=== PATIENT | male | born 1995 | race Hispanic/Latino ===

== ENCOUNTER 2021-10-13 17:07 | Emergency (ER) | payer BC ==
[2021-10-13] MEDS ORDERED: SODIUM CHLORIDE 0.9% 1000 ML 1,000 ML IV ONE (21:16)
[2021-10-13] MEDS ORDERED: ONDANSETRON 4 MG/2 ML INJ IV ONE (21:16)
[2021-10-13 21:35] VITALS: BP 160/85
[2021-10-13 21:39] LABS: Basophils # (Auto) 0.1 K/mm3 (0.0-0.1); Basophils % (Auto) 0.4 % (0.0-1.8); Eosinophils % (Auto) 0.1 % (0.0-4.3); Hematocrit 43.9 % (35.5-45.6); Hemoglobin 14.6 gm/dl (11.8-15.2); Lymphocytes # (Auto) 1.8 K/mm3 (1.2-5.4); Lymphocytes % (Auto) 14.2 % (13.4-35.0); Mean Corpuscular HGB Conc 33 % (32-34); Mean Corpuscular Volume 91 fl (84-94); Monocytes # (Auto) 1.4 K/mm3 (0.0-0.8); Monocytes % (Auto) 10.5 % (0.0-7.3); Platelet Count 192 K/mm3 (140-440); Red Blood Count 4.84 M/mm3 (3.65-5.03)
[2021-10-13 21:55] LABS: Alanine Aminotransferase 14 units/L (7-56); BUN/Creatinine Ratio 9; Blood Urea Nitrogen 7 mg/dL (9-20); Calcium 9.7 mg/dL (8.4-10.2); Hemolysis Index 12
--- NOTE | 2021-10-13 21:59 | Emergency Department Report ---
ED General Adult HPI - General Chief complaint: Weakness Stated complaint: DIZZINESS/WEAKNESS/STOMACH ISSUE Time Seen by Provider: 10/13/21 21:14 Source: patient, EMS Mode of arrival: Stretcher Limitations: No Limitations - History of Present Illness Initial comments: Patient 26-year-old male with history of GERD, hiatal hernia, and cochlear implant who presents for weakness, dizziness, abdominal queasiness with nausea vomiting since this AM. Patient does endorse drinking EtOH on last night and having dinner. Noticed symptoms this a.m. upon awakening with dizziness, abd cramping, and weakness.. Abdominal pain is described as cramping and spasms 4/10. And generalized malaise. There is no fevers no chills, no shortness of breath. Patient is COVID vaccinated. Patient states symptoms are improving. Patient is currently tolerating p.o. intake without nausea vomiting. Nausea is rated at 4/10. - Related Data Previous Rx's Medication Instructions Recorded Last Taken Type Ondansetron [Zofran Odt] 4 mg PO Q8HR PRN #9 tab.rapdis 10/13/21 Unknown Rx Allergies Allergy/AdvReac Type Severity Reaction Status Date / Time No Known Allergies Allergy Verified 10/13/21 17:22 ED Review of Systems ROS: Stated complaint: DIZZINESS/WEAKNESS/STOMACH ISSUE Other details as noted in HPI Constitutional: malaise. denies: chills, fever Eyes: denies: eye pain, eye discharge, vision change ENT: denies: ear pain, throat pain, congestion Respiratory: denies: cough, shortness of breath, wheezing Cardiovascular: denies: chest pain, palpitations Endocrine: no symptoms reported Gastrointestinal: abdominal pain, nausea, vomiting. denies: diarrhea, cons tipation, hematemesis, melena, hematochezia Genitourinary: denies: urgency, dysuria, frequency, hematuria Musculoskeletal: denies: back pain, joint swelling, arthralgia Skin: denies: rash, lesions Neurological: weakness, vertigo. denies: headache, numbness, paresthesias, confusion Psychiatric: anxiety. denies: depression Hematological/Lymphatic: denies: easy bleeding, easy bruising ED Past Medical Hx - Past Medical History Previous Medical History?: Yes Hx GERD: Yes Additional medical history: Hiatal hernia. Rt cochlear device - Social History Smoking Status: Never Smoker Substance Use Type: Alcohol - Medications Home Medications: Home Medications Medication Instructions Recorded Confirmed Last Taken Type Ondansetron [Zofran Odt] 4 mg PO Q8HR PRN #9 tab.rapdis 10/13/21 Unknown Rx ED Physical Exam - General Limitations: No Limitations General appearance: alert, in no apparent distress - Head Head exam: Present: normocephalic, normal inspection - Eye Eye exam: Present: PERRL, EOMI. Absent: conjunctival injection, nystagmus Pupils: Present: normal accommodation - ENT ENT exam: Present: normal orophraynx, mucous membranes moist, normal external ear exam - Neck Neck exam: Present: normal inspection, full ROM. Absent: tenderness, lymphadenopathy - Respiratory Respiratory exam: Present: normal lung sounds bilaterally. Absent: respiratory distress, wheezes, stridor, chest wall tenderness - Cardiovascular Cardiovascular Exam: Present: regular rate, normal rhythm, normal heart sounds - GI/Abdominal GI/Abdominal exam: Present: soft, normal bowel sounds. Absent: distended, tenderness, guarding, rebound, rigid, bruit, hernia - Rectal Rectal exam: Present: deferred - Extremities Exam Extremities exam: Present: normal inspection, full ROM, normal capillary refill. Absent: tenderness - Back Exam Back exam: Present: normal inspection, full ROM. Absent: CVA tenderness (R), CVA tenderness (L) - Neurological Exam Neurological exam: Present: alert, oriented X3, CN II-XII intact, normal gait, reflexes normal. Absent: motor sensory deficit - Expanded Neurological Exam Expanded Patient oriented to: Present: person, place, time Speech: Present: fluid speech Cranial nerves: EOM's Intact: Normal, Gag Reflex: Normal, Tongue Deviation: Normal, Nystagmus: Normal, Facial Sensation: Normal Cerebellar function: Finger to Nose: Normal Upper motor neuron: Pronator Drift: Normal Motor strength exam: RUE: 5, LUE: 5, RLE: 5, LLE: 5 Best Eye Response (Pamela): (4) open spontaneously Best Motor Response (Pamela): (6) obeys commands Best Verbal Response (Pamela): (5) oriented Pamela Total: 15 - Psychiatric Psychiatric exam: Present: normal affect, normal mood. Absent: anxious, homicidal ideation, suicidal ideation - Skin Skin exam: Present: warm, dry, intact, normal color. Absent: rash ED Course Vital Signs 10/13/21 10/13/21 17:20 21:29 Pulse Rate 100 H 79 Respiratory 18 Rate Blood Pressure 160/85 Blood Pressure 143/90 [Left] O2 Sat by Pulse 100 99 Oximetry ED Medical Decision Making - Lab Data Result diagrams: 10/13/21 21:29 10/13/21 21:29 Labs 10/13/21 10/13/21 10/13/21 21:29 21:29 22:40 WBC 13.0 H RBC 4.84 Hgb 14.6 Hct 43.9 MCV 91 MCH 30 MCHC 33 RDW 13.0 L Plt Count 192 Lymph % (Auto) 14.2 Noble % (Auto) 10.5 H Eos % (Auto) 0.1 Baso % (Auto) 0.4 Lymph # (Auto) 1.8 Noble # (Auto) 1.4 H Eos # (Auto) 0.0 Baso # (Auto) 0.1 Seg Neutrophils % 74.8 H Seg Neutrophils # 9.7 H Sodium 137 Potassium 3.8 Chloride 99.5 Carbon Dioxide 23 Anion Gap 18 BUN 7 L Creatinine 0.8 Estimated GFR > 60 BUN/Creatinine Ratio 9 Glucose 108 H Calcium 9.7 Total Bilirubin 0.70 AST 16 ALT 14 Alkaline Phosphatase 67 Total Protein 7.8 Albumin 5.0 Albumin/Globulin Ratio 1.8 Lipase 20 Urine Color Straw Urine Turbidity Clear Urine pH 7.[address] 1.005 Urine Protein <15 mg/dl Urine Glucose (UA) Neg Urine Ketones Neg Urine Blood Sm Urine Nitrite Neg Urine Bilirubin Neg Urine Urobilinogen < 2.0 Ur Leukocyte Esterase Neg Urine WBC (Auto) 1.0 Urine RBC (Auto) 1.0 - EKG Data EKG shows normal: sinus rhythm, axis, intervals, QRS complexes, ST-T waves Rate: normal - EKG Data Interpretation: normal EKG (Normal sinus rhythm no ST elevated IN interpreted by ED attending.) - Radiology Data Radiology results: report reviewed, image reviewed CHEST 2 VIEWS INDICATION / CLINICAL INFORMATION: dizziness. COMPARISON: None available. FINDINGS: SUPPORT DEVICES: None. HEART / MEDIASTINUM: No significant abnormality. LUNGS / PLEURA: No significant pulmonary abnormality. No significant pleural effusion. No pneumothorax. ADDITIONAL FINDINGS: No significant additional findings. IMPRESSION: 1. No acute abnormality of the chest. Signer Name: Gaurav Del Rio MD Signed: 10/13/2021 9:56 PM Workstation Name: [id number] Transcribed By: MN Dictated By: Gaurav Del Rio MD Electronically Authenticated By: Gaurav Del Rio MD Signed Date/Time: 10/13/212155 DD/ 55 TD/TT: - Medical Decision Making Chest x-ray normal no infiltrates no opacities, EKG normal sinus rhythm no ST elevated IN, labs noted as above, UA: Normal, patient is currently alert oriented x3. Patient advised symptoms are improved and resolved. Plan DC to home, as needed Zofran as needed, continue to hydrate, follow-up primary care doctor in 2 to 3 days. Return to emergency department should symptoms worsen. Critical care attestation.: If time is entered above; I have spent that time in minutes in the direct care of this critically ill patient, excluding procedure time. ED Disposition Clinical Impression: Dizziness, Malaise Disposition: 01 HOME / SELF CARE / HOMELESS Is pt being admited?: No Does the pt Need Aspirin: No Condition: Stable Instructions: Dizziness, Weakness, Rehydration, Adult Additional Instructions: Take medications as prescribed, hydrate as directed. Follow-up with your doctor in 2 to 3 days. Return to emergency department should symptoms worsen. Prescriptions: Ondansetron [Zofran Odt] 4 mg PO Q8HR PRN #9 tab.rapdis PRN Reason: Nausea Referrals: JEROME ARIAS MD [Staff Physician] - 2-3 Days Forms: Work/School Release Form(ED) Time of Disposition: 23:16
[2021-10-13 22:55] LABS: Bilirubin,Urine NEG (Negative); Blood,Urine SM (Negative); Color,Urine Straw (Yellow); Protein,Urine <15 mg/dL mg/dL (Negative); Urobilinogen,Urine < 2.0 mg/dL (<2.0)
--- NOTE | 2021-10-14 09:52 | Electrocardiograph Report ---
[facility] Test Date: 2021-10-13 Test Time: 22:11:24 Pat Name: LUCIA OROZCO Department: Room: Gender: M [employer]: TEO Asher : 1995 Requested By: RONEN LARA Order Number: [id number] Reading MD: Guido Verdugo Measurements Intervals [place] Rate: 68 P: 73 MT: 128 QRS: 67 QRSD: 83 T: 59 QT: 407 QTc: 433 Interpretive Statements Sinus rhythm No previous ECG available for comparison Electronically Signed On 10-14-2021 9:52:11 EDT by Guido Verdugo
== END 2021-10-13 23:26 | disposition home or self-care (01) ==
LOC: ED 17:07
DX: R42 Dizziness and giddiness (principal); R53.81 Other malaise; F10.20 Alcohol dependence, uncomplicated
CPT/HCPCS: 36415; 71046; 80053; 81001; 83690; 85025; 93005; 96361; 96374; 99284; J2405; J7030